=== PATIENT | female | born 1990 | race Two or more races ===

== ENCOUNTER 2020-02-24 16:08 | Emergency (ER) | payer BC, MEDICAID, OTHER ==
[~2020-02-24] VITALS: Ht 162.6 cm; Wt 70.3 kg
[2020-02-24 17:44] LABS: BASOPHILS % (AUTO) 1 % (0-1); EOSINOPHILS % (AUTO) 0 % (1-7); LYMPHOCYTES % (AUTO) 26 % (22-44); MEAN CORPUSCULAR HEMOGLOBIN 28.3 pg (27.0-34.8); MEAN CORPUSCULAR HGB CONC 34.2 g/dL (32.4-35.8); MEAN PLATELET VOLUME 7.8 fL (7.4-10.4); MONOCYTES % (AUTO) 6 % (2-9); NEUTROPHILS % (AUTO) 67 % (42-75); PLATELET COUNT 244 x10^3/uL (130-400); RED CELL DISTRIBUTION WIDTH 15.4 % (9.6-15.2)
--- NOTE | 2020-02-24 17:56 | NUR ---
Initial pt contact. PT presents to ED C/O cough, chest pressure, palpitations. Reports periods apnea while sleeping. COVID + 1 month ago. PT states "I am feeling a bit anxious with all of this happening, I can tell I'm anxious". Chest pain reproducable with palpation, worse with movement. Pt sitting upright on gurney, coughing occasionally. NAD, VSS. Continuous pulse ox in place. call light and personal belongings within reach.
[2020-02-24 17:57] LABS: ALBUMIN 4.6 g/dL (3.4-5.0); ANION GAP 7 mmol/L (5-15); CALCIUM 9.2 mg/dL (8.5-10.1); CHLORIDE 108 mmol/L (98-107)
[2020-02-24 18:00] LABS: MD NO
[2020-02-24 18:03] LABS: CREATININE 0.77 mg/dL (0.55-1.02)
--- NOTE | 2020-02-24 18:53 | NUR ---
BEDSIDE REPORT TO VONNIE JONAS.
[2020-02-24 20:17] VITALS: BP 111/74
== END 2020-02-24 20:20 | disposition home or self-care (01) ==
LOC: ED 20:00
DX: U07.1 COVID-19 (principal); K21.00 Gastro-esophageal reflux disease with esophagitis, without bleeding; F41.9 Anxiety disorder, unspecified; R07.9 Chest pain, unspecified; K59.00 Constipation, unspecified
CPT/HCPCS: 36415; 71045; 80048; 82040; 84703; 85025; 93005; 99285